=== PATIENT | female | born 1995 | race Two or more races ===

== ENCOUNTER 2024-05-27 10:09 | Emergency (ER) | payer OTHER ==
[~2024-05-27] VITALS: Ht 149.9 cm; Wt 49.9 kg
[2024-05-27] MEDS ORDERED: CEFTRIAXONE SODIUM 1,000 MG VIAL IM ONE (11:00)
[2024-05-27] MEDS ORDERED: CEFTRIAXONE SODIUM 1,000 MG VIAL ONE (11:06)
[2024-05-27 11:14] LABS: PH,URINE 6.5 (5.0-8.0); URINE APPEARANCE Clear; URINE BILIRRUBIN Negative (NEGATIVE); URINE BLOOD Negative; URINE COLOR Yellow; URINE GLUCOSE Negative (NEGATIVE); URINE KETONE Negative (NEGATIVE); URINE LEUKOCYTE Negative; URINE NITRATE Negative; URINE PROTEIN Negative (NEGATIVE); URINE UROBILINOGEN 0.2 E.U./dl
[2024-05-27 11:15] LABS: URINE BACTERIA 111.2 uL (0.0-1933)
[2024-05-27 11:29] LABS: URINE EPITHELIAL CELLS 0.7 uL (0.0-38.8); URINE RBC 0.4 uL (0.0-20.8); URINE WBC 0.4 uL (0.0-23.2)
[2024-05-27] MEDS ORDERED: MACROBID 100 M100 MG PO (11:42)
== END 2024-05-27 12:05 | disposition home or self-care (01) ==
LOC: ER 10:12
PROVIDERS: General Practice
DX: N39.0 Urinary tract infection, site not specified (principal)
CPT/HCPCS: 36415; 96372; 99282; J0696